=== PATIENT | female | born 1995 | race African-American/Black ===

== ENCOUNTER 2023-02-28 22:10 | Emergency (ER) | payer SELFPAY ==
[~2023-02-28] VITALS: Ht 162.6 cm; Wt 123.1 kg
[2023-02-28 23:45] LABS: CHLORIDE 109 mEq/L (98-107)
[2023-02-28 23:49] LABS: BASOPHILS % 0.5 % (0.0-2.0); EOSINOPHILS % 6.7 % (0.0-5.0); HEMOGLOBIN. 11.8 g/dL (12.0-16.0); LYMPHOCYTES % 30.8 % (20.0-50.0); MEAN CORPUSCULAR HEMOGLOBIN 25.7 pg (28.0-32.0); MEAN CORPUSCULAR VOLUME 80.4 fL (81.0-99.0); MEAN PLATELET VOLUME 8.5 fl (7.4-10.4); MONOCYTES % 8.4 % (2.0-8.0); NEUTROPHILS % 53.6 % (40.0-76.0); PLATELET 399 x1000/uL (130-400); RED CELL DISTRIBUTION WIDTH 14.7 % (11.6-14.6)
[2023-02-28 23:53] LABS: HCG SCREEN POSITIVE
[2023-02-28 23:56] LABS: B-HCG QUANTITATIVE 28 mIU/mL (<3)
[2023-03-01 01:32] LABS: CLARITY URINE CLEAR (CLEAR); COLOR URINE YELLOW (YELLOW); KETONES URINE NEGATIVE (NEGATIVE); LEUKOCYTE ESTERASE URINE TRACE (NEGATIVE); NITRITE URINE NEGATIVE (NEGATIVE); OCCULT BLOOD URINE 3+ (NEGATIVE); PH URINE 5.5 (4.5-8.0); PROTEIN URINE NEGATIVE (NEGATIVE); SPECIFIC GRAVITY URINE 1.015 (1.005-1.030); UROBILINOGEN URINE 0.2 E.U./dL (0.2-1.0)
[2023-03-01 02:00] VITALS: BP 122/76
== END 2023-03-01 02:15 | disposition home or self-care (01) ==
LOC: ER 22:44
DX: O20.0 Threatened abortion (principal); Z3A.01 Less than 8 weeks gestation of pregnancy
CPT/HCPCS: 36415; 76801; 80053; 81003; 84702; 84703; 85025; 86850; 86900; 99285